=== PATIENT | male | born 1975 | race Caucasian/White ===

== ENCOUNTER 2017-10-26 12:11 | Emergency (ER) | payer SELFPAY ==
[~2017-10-26] VITALS: Ht 170.1 cm; Wt 113.4 kg
[~2017-10-26 12:11] MED LIST: "\\\"BP PILL\\\""; "\\\"WATER PILL\\\""; ANTIVERT/2525 MG PO; BIAXIN500 MG PO; CLARITIN10 MG PO; LISINOPRIL20 MG PO; METFORMIN500 MG PO; NKHM PO; ULTRAM50 MG PO
[2017-10-26 12:23] VITALS: BP 180/100
[2017-10-26 12:30] LABS: BASO # 0.1 10*3/uL (0.0-0.1); BASO % 0.7 % (0.0-1.0); EOS # 0.2 10*3/uL (0.0-0.4); EOS % 1.9 % (1.0-4.0); HEMATOCRIT 47.3 % (42.0-52.0); HEMOGLOBIN 17.1 g/dl (14.0-18.0); LYMPH # 2.7 10*3/uL (1.3-4.4); LYMPH % 27.2 % (27.0-41.0); MEAN CELL VOLUME 85.1 fl (80.0-94.0); MEAN CORPUSCULAR HGB 30.8 pg (27.0-31.0); MEAN CORPUSCULAR HGB CONC 36.2 g/dl (33.0-37.0); MEAN PLATELET VOLUME 10.3 fl (9.6-12.3); MONO # 0.5 10*3/uL (0.1-1.0); MONO % 4.7 % (3.0-9.0); NEUT # 6.5 10*3/uL (2.3-7.9); NEUT % 65.2 % (47.0-73.0); PLATELET COUNT AUTOMATED 260 10*3/uL (130-400); RED BLOOD COUNT 5.56 10*6/uL (4.50-5.90); RED CELL DISTRI WIDTH 11.9 % (0-14.5); WHITE BLOOD COUNT 9.9 10*3/uL (4.8-10.8)
[2017-10-26 12:44] LABS: ACT PARTIAL THROMBO TIME 21.5 SECONDS (20.8-31.5); INTERNATIONAL NORM RATIO 0.9 (2.0-3.5)
[2017-10-26 12:47] LABS: ALBUMIN 3.8 gm/dl (3.1-4.5); ALKALINE PHOSPHATASE 65 U/L (45-117); BUN 14 mg/dl (7-24); CHLORIDE 98 mmol/L (98-107); CREATININE 1.42 mg/dL (0.70-1.30); POTASSIUM 3.9 mmol/L (3.5-5.1); SGOT/AST 21 IU/L (3-35); SGPT/ALT 50 U/L (12-78); SODIUM 134 mmol/L (136-145); TOTAL PROTEIN 8.2 gm/dL (6.4-8.2)
[2017-10-26 12:50] LABS: TROPONIN I < 0.015 ng/ml (<0.045)
[2017-10-26 13:00] VITALS: BP 174/90
[2017-10-26 13:49] VITALS: BP 174/90
[2017-10-26 14:03] VITALS: BP 140/90
[2017-10-27] MEDS ORDERED: ONE DAILY1 EACH PO (09:48)
== END 2017-10-26 15:41 | disposition left against medical advice (07) ==
LOC: ED 12:11 → EDHOLD 14:47 → 5E 14:53 → EDHOLD 14:53 → ED 15:41
PROVIDERS: Emergency Medicine
DX: R07.89 Other chest pain (principal); R11.0 Nausea; Z79.899 Other long term (current) drug therapy

== ENCOUNTER → 2017-10-27 | Outpatient (CLI) | payer SELFPAY ==
[~2017-10-27] MED LIST changes: +ONE DAILY1 EACH PO
--- NOTE | 2017-10-27 10:45 | NUR ---
INFORMED CONSENT ONTAINED FOR EXERCISE CARDIOLITE STRESS WITH DR ALANIZ. RESTING EKG NSR WITH A SUPINE BP 142/90 AND A HEART RATE 80. STANDING HR OF 109, AND A BP OF 144/94. PT COMPLETED 5:23 MINUTES OF A JARAD PROTOCOL WITH COMPLETETION OF 2:23 MINUTES OF STAGE II AT 2.5 MPH AND 12% GRADE. REACHED A PEAK HR OF 175 AND A BP OF 266/100 WHICH IS 97% OF PREDICTED MAX. TEST TERMINATED DUE TO FATIGUE. EKG NONDIAGNOSTIC. HAD A FAIR EXERCISE TOLERANCE. LAST RECOVERY HR OF 116 WITH A BP OF 140/102. AWAITING NUCLEAR IMAGING IN STABLE CONDITION.
== END | disposition home or self-care (01) ==
LOC: CARD 09:09
DX: R07.9 Chest pain, unspecified (principal)

== ENCOUNTER → 2017-11-02 | Outpatient (CLI) | payer SELFPAY | END | disposition home or self-care (01) | LOC: RESCLI 02:11 | DX: E11.69 Type 2 diabetes mellitus with other specified complication (principal); I10 Essential (primary) hypertension; E66.01 Morbid (severe) obesity due to excess calories; R53.83 Other fatigue ==

== ENCOUNTER 2019-10-10 10:13 | Emergency (ER) | payer SELFPAY ==
[~2019-10-10] VITALS: Ht 182.8 cm; Wt 106.6 kg
[2019-10-10 10:50] LABS: BASO # 0.1 10*3/uL (0.0-0.1); BASO % 0.8 % (0.0-1.0); EOS # 0.3 10*3/uL (0.0-0.4); EOS % 3.7 % (1.0-4.0); HEMATOCRIT 44.3 % (42.0-52.0); HEMOGLOBIN 15.4 g/dl (14.0-18.0); LYMPH # 2.5 10*3/uL (1.3-4.4); LYMPH % 30.5 % (27.0-41.0); MEAN CELL VOLUME 90.2 fl (80.0-94.0); MEAN CORPUSCULAR HGB 31.4 pg (27.0-31.0); MEAN CORPUSCULAR HGB CONC 34.8 g/dl (33.0-37.0); MEAN PLATELET VOLUME 9.9 fl (9.6-12.3); MONO # 0.4 10*3/uL (0.1-1.0); MONO % 5.1 % (3.0-9.0); NEUT % 59.8 % (47.0-73.0); PLATELET COUNT AUTOMATED 252 10*3/uL (130-400); RED BLOOD COUNT 4.91 10*6/uL (4.50-5.90); RED CELL DISTRI WIDTH 11.8 % (0-14.5); WHITE BLOOD COUNT 8.3 10*3/uL (4.8-10.8)
[2019-10-10 11:00] LABS: INTERNATIONAL NORM RATIO 0.9 (2.0-3.5)
[2019-10-10 11:06] LABS: ALBUMIN 3.3 gm/dl (3.1-4.5); ALKALINE PHOSPHATASE 45 U/L (45-117); BUN 12 mg/dl (7-24); CHLORIDE 103 mmol/L (98-107); CREATININE 1.11 mg/dL (0.70-1.30); POTASSIUM 4.1 mmol/L (3.5-5.1); SGOT/AST 14 IU/L (3-35); SGPT/ALT 31 U/L (12-78); SODIUM 138 mmol/L (136-145); TOTAL PROTEIN 7.2 gm/dL (6.4-8.2)
[2019-10-10 11:10] LABS: TROPONIN I < 0.015 ng/ml (<0.045)
[2019-10-10] MEDS ORDERED: DEBROX15 ML OT (12:35)
[2019-10-10] MEDS ORDERED: ZYRTEC10 MG PO (12:35)
== END 2019-10-10 12:36 | disposition home or self-care (01) ==
LOC: ED 10:13
PROVIDERS: Physician Assistant
DX: R42 Dizziness and giddiness (principal); R73.9 Hyperglycemia, unspecified; I10 Essential (primary) hypertension; Z79.899 Other long term (current) drug therapy

== ENCOUNTER → 2019-11-03 | Outpatient (CLI) | payer SELFPAY ==
[~2019-11-03] MED LIST changes: +DEBROX15 ML OT; +ZYRTEC10 MG PO
[2019-11-03 10:42] LABS: CHOLESTEROL 204 mg/dL (<200); HDL CHOLESTEROL 46 mg/dl (40-60); LDL CHOLESTEROL 122 mg/dL (9-159); TRIGLYCERIDES 180 mg/dl (<150); VLDL CHOLESTEROL 36 mg/dL (6-40)
[2019-11-04 07:05] LABS: CREATININE,URINE 246.7 mg/dL (Not Estab.); MICRO ALBUMIN/CRE RATIO 13.8 (0.0-30.0)
== END | disposition home or self-care (01) ==
LOC: RESCLI 00:23
PROVIDERS: Student in an Organized Health Care Education/Training Program
DX: Z00.00 Encounter for general adult medical examination without abnormal findings (principal); Z91.19 Patient's noncompliance with other medical treatment and regimen; E78.5 Hyperlipidemia, unspecified; E11.9 Type 2 diabetes mellitus without complications; I10 Essential (primary) hypertension; E66.9 Obesity, unspecified; R42 Dizziness and giddiness; Z79.899 Other long term (current) drug therapy

== ENCOUNTER 2020-06-11 10:37 | Emergency (ER) | payer SELFPAY ==
[~2020-06-11] VITALS: Ht 182.8 cm; Wt 106.6 kg
[2020-06-11] MEDS ORDERED: AMOXICILLIN500 M2 PO (11:07)
== END 2020-06-11 11:14 | disposition home or self-care (01) ==
LOC: ED 10:37
DX: K08.89 Other specified disorders of teeth and supporting structures (principal); Z79.899 Other long term (current) drug therapy

== ENCOUNTER → 2020-11-30 | Outpatient (CLI) | payer OTHER ==
[~2020-11-30] MED LIST changes: +AMOXICILLIN500 M2 PO; +MECLIZINE HCL25 M2 PO
== END | disposition home or self-care (01) ==
LOC: COVID19 12:18
PROVIDERS: ATTEND Internal Medicine
DX: Z20.822 Contact with and (suspected) exposure to COVID-19 (principal)

== ENCOUNTER 2021-02-19 12:23 | Emergency (ER) | payer SELFPAY ==
[~2021-02-19] VITALS: Wt 102.1 kg
[~2021-02-19 12:23] MED LIST changes: -MECLIZINE HCL25 M2 PO
[2021-02-19] MEDS ORDERED: MECLIZINE HCL25 M2 PO (15:34)
== END 2021-02-19 17:10 | disposition home or self-care (01) ==
LOC: ED 12:23
DX: R42 Dizziness and giddiness (principal); I10 Essential (primary) hypertension; Z79.899 Other long term (current) drug therapy

== ENCOUNTER → 2022-04-15 | Outpatient (CLI) | payer OTHER ==
[~2022-04-15] MED LIST changes: +EC NAPROSYN500 MG PO; +MECLIZINE HCL25 M2 PO
[2022-04-15 12:23] LABS: HEMATOCRIT 45.2 % (42.0-52.0); MEAN CELL VOLUME 86.9 fl (80.0-94.0); MEAN CORPUSCULAR HGB CONC 34.5 g/dl (33.0-37.0); MEAN PLATELET VOLUME 9.1 fl (9.6-12.3); PLATELET COUNT AUTOMATED 345 10*3/uL (130-400); RED CELL DISTRI WIDTH 11.8 % (0-14.5); WHITE BLOOD COUNT 18.3 10*3/uL (4.8-10.8)
[2022-04-15 12:30] LABS: MANUAL DIFF REFLEX YES
[2022-04-15 12:31] LABS: BILIRUBIN Negative (Negative); BLOOD Negative (Negative); CLARITY Clear (Clear); COLOR Yellow (Yellow); GLUCOSE 2+ (Negative); KETONE 2+ (Negative); LEUKO ESTERASE Negative (Negative); NITRITE Negative (Negative)
[2022-04-15 12:44] LABS: ALKALINE PHOSPHATASE 85 U/L (45-117); BUN 20 mg/dl (7-24); CHLORIDE 98 mmol/L (98-107); CREATININE 1.21 mg/dL (0.70-1.30); POTASSIUM 3.7 mmol/L (3.5-5.1); SGOT/AST 16 IU/L (3-35); SGPT/ALT 43 U/L (12-78); SODIUM 134 mmol/L (136-145); TOTAL PROTEIN 8.5 gm/dL (6.4-8.2)
[2022-04-15 12:50] LABS: ATYPICAL LYMPHS 2 % (0-0); TOTAL CELLS COUNTED 100 #CELLS
[2022-04-15 12:51] LABS: PLATELET SUFFICIENCY NORMAL (NORMAL); POLYCHROMASIA SLIGHT
[2022-04-15 13:44] LABS: BACTERIA TRACE; MUCOUS 1+; WBC 0-2 wbc/hpf (0-5)
== END | disposition home or self-care (01) ==
LOC: LAB 12:02
PROVIDERS: ATTEND Internal Medicine Nephrology
DX: R50.9 Fever, unspecified (principal)